=== PATIENT | male | born 2000 | race Caucasian/White ===

== ENCOUNTER 2019-01-12 22:49 | Emergency (ER) | payer OTHER ==
[~2019-01-12] VITALS: Ht 172.7 cm; Wt 58.5 kg
[2019-01-12 23:00] VITALS: Ht 172.7 cm; Wt 58.5 kg
[2019-01-13 02:01] VITALS: BP 117/78
== END 2019-01-13 02:01 | disposition home or self-care (01) ==
LOC: ED 22:49
DX: M25.551 Pain in right hip (principal); R19.7 Diarrhea, unspecified

== ENCOUNTER 2019-04-28 01:04 | Emergency (ER) | payer OTHER ==
[~2019-04-28] VITALS: Ht 170.2 cm; Wt 58.1 kg
[2019-04-28 01:10] VITALS: Ht 170.2 cm; Wt 58.1 kg
[2019-04-28 05:38] VITALS: BP 106/63
== END 2019-04-28 05:38 | disposition home or self-care (01) ==
LOC: ED 01:04
DX: N50.811 Right testicular pain (principal); R22.2 Localized swelling, mass and lump, trunk
CPT/HCPCS: 82962; Q0092